=== PATIENT | male | born 1930 | race Caucasian/White ===

== ENCOUNTER 2017-02-19 10:01 | Inpatient (IN) | payer MEDICARE ==
[~2017-02-19] VITALS: Ht 167.6 cm; Wt 81.6 kg
[2017-02-19] VITALS (22 sets, daily range): BP systolic 132–163; BP diastolic 73–119; BMI 30.5
[~2017-02-19 10:01] MED LIST: ASPIRIN325 MG PO; BETAPACE AF80 MG PO; COUMADIN5 MG PO; HYDROCHLOROTH12.5 M1; NORCO 5/325 TAB1 TA1; PERI-COLACE TAB1 TAB; PRAVACHOL40 MG PO; ZESTORETIC 20/11 TAB PO
[2017-02-19 10:30] LABS: BASOPHILS 0.9 % (0-2); EOSINOPHILS 5.8 % (0-7); HEMATOCRIT 43.6 % (42.0-54.0); HEMOGLOBIN 14.2 g/dL (13.5-17.5); IMMATURE GRANULOCYTES 0.7 % (0-5); LYMPHOCYTES 12.9 % (15-50); MCHC 32.6 g/dL (31.0-37.0); MCV 95.2 fL (80.0-100.0); MEAN PLATELET VOLUME 10.9 fL (7.4-10.4); MONOCYTES 9.8 % (2-11); NEUTROPHILS 69.9 % (40-80); RBC 4.58 10x6/uL (4.20-6.10); RDW 14.1 % (11.5-14.5); WBC 7.5 10x3/uL (4.8-10.8)
[2017-02-19 10:32] LABS: PLATELET COUNT 214 10x3/uL (130-400)
[2017-02-19 11:19] LABS: ALBUMIN 3.9 g/dL (3.4-5.0); ANION GAP 16.6 mmol/L (8-16); BILIRUBIN - TOTAL 0.49 mg/dL (0.2-1.3); CALCIUM 8.8 mg/dL (8.5-10.1); CARBON DIOXIDE 21.9 mmol/L (21.0-32.0); CREATININE - SERUM 1.3 mg/dL (0.6-1.3); POTASSIUM - SERUM 3.5 mmol/L (3.5-5.1); PROTEIN - SERUM 7.2 g/dL (6.4-8.2); THYROID STIMULATING HORMONE 0.79 uIU/mL (0.36-3.74); TROPONIN-I 0.026 ng/mL (0.000-0.060)
[2017-02-20] VITALS (24 sets, daily range): BP systolic 118–157; BP diastolic 45–97; Ht 167.6 cm; Wt 81.6 kg
[2017-02-20 03:52] LABS: BASOPHILS 0 % (0-2); EOSINOPHILS 0 % (0-7); HEMATOCRIT 40.3 % (42.0-54.0); HEMOGLOBIN 13.4 g/dL (13.5-17.5); IMMATURE GRANULOCYTES 0.2 % (0-5); LYMPHOCYTES 2.4 % (15-50); MCH 31.3 pg (26.0-34.0); MCHC 33.3 g/dL (31.0-37.0); MCV 94.2 fL (80.0-100.0); MEAN PLATELET VOLUME 10.2 fL (7.4-10.4); MONOCYTES 1.9 % (2-11); NEUTROPHILS 95.5 % (40-80); PLATELET COUNT 207 10x3/uL (130-400); RBC 4.28 10x6/uL (4.20-6.10); RDW 14.2 % (11.5-14.5)
[2017-02-20 04:11] LABS: ANION GAP 18.5 mmol/L (8-16); CALCIUM 8.7 mg/dL (8.5-10.1); CARBON DIOXIDE 21.7 mmol/L (21.0-32.0); CREATININE - SERUM 1.5 mg/dL (0.6-1.3); POTASSIUM - SERUM 3.2 mmol/L (3.5-5.1); WBC 13.3 10x3/uL (4.8-10.8)
[2017-02-21] VITALS (24 sets, daily range): BP systolic 123–163; BP diastolic 62–97
[2017-02-21 04:10] LABS: WBC 21.1 10x3/uL (4.8-10.8)
[2017-02-21 04:11] LABS: HEMATOCRIT 40.1 % (42.0-54.0); HEMOGLOBIN 13.3 g/dL (13.5-17.5); MCH 31.1 pg (26.0-34.0); MCHC 33.2 g/dL (31.0-37.0); MCV 93.7 fL (80.0-100.0); MEAN PLATELET VOLUME 10.3 fL (7.4-10.4); PLATELET COUNT 242 10x3/uL (130-400); RBC 4.28 10x6/uL (4.20-6.10); RDW 14.6 % (11.5-14.5)
[2017-02-21 04:15] LABS: ANION GAP 18.5 mmol/L (8-16); CALCIUM 8.6 mg/dL (8.5-10.1); CARBON DIOXIDE 21.9 mmol/L (21.0-32.0); PHOSPHOROUS 4.1 mg/dL (2.5-4.9); POTASSIUM - SERUM 3.4 mmol/L (3.5-5.1)
[2017-02-21 04:28] LABS: CREATININE - SERUM 2.2 mg/dL (0.6-1.3)
[2017-02-21 05:17] LABS: LYMPHOCYTES 3 % (15-50); MONOCYTES 1 % (2-11); NEUTROPHILS 94 % (40-80); PLATELET ESTIMATE NORMAL
[2017-02-22] VITALS (24 sets, daily range): BP systolic 127–163; BP diastolic 62–97
[2017-02-22 04:49] LABS: BASOPHILS 0 % (0-2); EOSINOPHILS 0.2 % (0-7); HEMATOCRIT 40.3 % (42.0-54.0); HEMOGLOBIN 13.3 g/dL (13.5-17.5); IMMATURE GRANULOCYTES 0.6 % (0-5); LYMPHOCYTES 7.2 % (15-50); MCH 30.8 pg (26.0-34.0); MCV 93.3 fL (80.0-100.0); MEAN PLATELET VOLUME 10.3 fL (7.4-10.4); MONOCYTES 7.7 % (2-11); NEUTROPHILS 84.3 % (40-80); PLATELET COUNT 241 10x3/uL (130-400); RBC 4.32 10x6/uL (4.20-6.10); RDW 14.5 % (11.5-14.5)
[2017-02-22 05:15] LABS: ALBUMIN 3.3 g/dL (3.4-5.0); ANION GAP 14.3 mmol/L (8-16); BILIRUBIN - DIRECT 0.26 mg/dL (0.00-0.30); BILIRUBIN - INDIRECT 0.54 mg/dL (0.00-1.00); BILIRUBIN - TOTAL 0.8 mg/dL (0.2-1.3); CALCIUM 8.2 mg/dL (8.5-10.1); CARBON DIOXIDE 24.1 mmol/L (21.0-32.0); CREATININE - SERUM 1.7 mg/dL (0.6-1.3); PHOSPHOROUS 4.1 mg/dL (2.5-4.9); POTASSIUM - SERUM 3.4 mmol/L (3.5-5.1)
[2017-02-23] VITALS (18 sets, daily range): BP systolic 138–170; BP diastolic 68–103
[2017-02-23 04:20] LABS: BASOPHILS 0.1 % (0-2); EOSINOPHILS 1.4 % (0-7); HEMATOCRIT 40.5 % (42.0-54.0); IMMATURE GRANULOCYTES 0.9 % (0-5); LYMPHOCYTES 9.3 % (15-50); MCH 32.3 pg (26.0-34.0); MCHC 34.6 g/dL (31.0-37.0); MCV 93.3 fL (80.0-100.0); MEAN PLATELET VOLUME 10.5 fL (7.4-10.4); MONOCYTES 9.5 % (2-11); NEUTROPHILS 78.8 % (40-80); PLATELET COUNT 223 10x3/uL (130-400); RBC 4.34 10x6/uL (4.20-6.10); RDW 14.2 % (11.5-14.5); WBC 14.8 10x3/uL (4.8-10.8)
[2017-02-23 04:29] LABS: ANION GAP 12.6 mmol/L (8-16); CARBON DIOXIDE 28.3 mmol/L (21.0-32.0); CREATININE - SERUM 1.6 mg/dL (0.6-1.3)
[2017-02-23 04:47] LABS: POTASSIUM - SERUM 2.9 mmol/L (3.5-5.1)
[2017-02-24 03:00] VITALS: BP 142/84
[2017-02-24 03:54] LABS: BASOPHILS 0.2 % (0-2); EOSINOPHILS 3.6 % (0-7); HEMATOCRIT 42.5 % (42.0-54.0); HEMOGLOBIN 14.1 g/dL (13.5-17.5); IMMATURE GRANULOCYTES 2.1 % (0-5); LYMPHOCYTES 12.6 % (15-50); MCH 30.5 pg (26.0-34.0); MCHC 33.2 g/dL (31.0-37.0); MEAN PLATELET VOLUME 10.3 fL (7.4-10.4); MONOCYTES 8.3 % (2-11); NEUTROPHILS 73.2 % (40-80); PLATELET COUNT 227 10x3/uL (130-400); RBC 4.62 10x6/uL (4.20-6.10); WBC 12.1 10x3/uL (4.8-10.8)
[2017-02-24 04:21] LABS: ANION GAP 14.6 mmol/L (8-16); CALCIUM 7.6 mg/dL (8.5-10.1); CARBON DIOXIDE 25.8 mmol/L (21.0-32.0); CREATININE - SERUM 1.2 mg/dL (0.6-1.3); MAGNESIUM - SERUM 2.2 mg/dL (1.8-2.4); POTASSIUM - SERUM 3.4 mmol/L (3.5-5.1)
[2017-02-24 04:24] LABS: PHOSPHOROUS 2.5 mg/dL (2.5-4.9)
[2017-02-24 07:00] VITALS: BP 151/79
[2017-02-24 11:00] VITALS: BP 132/69
[2017-02-24 15:00] VITALS: BP 136/75
[2017-02-24 17:09] VITALS: BP 133/76
[2017-02-24 19:00] VITALS: BP 157/74
[2017-02-25 04:00] VITALS: BP 163/72
[2017-02-25 06:27] LABS: BASOPHILS 0.2 % (0-2); EOSINOPHILS 8.3 % (0-7); HEMATOCRIT 44.7 % (42.0-54.0); HEMOGLOBIN 15.1 g/dL (13.5-17.5); IMMATURE GRANULOCYTES 3.6 % (0-5); LYMPHOCYTES 8.5 % (15-50); MCH 31.1 pg (26.0-34.0); MCHC 33.8 g/dL (31.0-37.0); MCV 92.2 fL (80.0-100.0); MEAN PLATELET VOLUME 10.4 fL (7.4-10.4); MONOCYTES 15.4 % (2-11); PLATELET COUNT 247 10x3/uL (130-400); RBC 4.85 10x6/uL (4.20-6.10); RDW 13.9 % (11.5-14.5); WBC 13.1 10x3/uL (4.8-10.8)
[2017-02-25 06:33] LABS: ANION GAP 12.9 mmol/L (8-16); CALCIUM 8.2 mg/dL (8.5-10.1); CARBON DIOXIDE 26.3 mmol/L (21.0-32.0); CREATININE - SERUM 1.4 mg/dL (0.6-1.3); POTASSIUM - SERUM 3.2 mmol/L (3.5-5.1)
[2017-02-25 08:26] VITALS: BP 143/71
[2017-02-25 11:40] VITALS: BP 151/73
[2017-02-25 16:11] VITALS: BP 136/69
[2017-02-25 20:25] VITALS: BP 145/56
[2017-02-26 01:13] VITALS: BP 130/53
[2017-02-26 04:32] VITALS: BP 117/66
[2017-02-26 05:21] LABS: BASOPHILS 0.3 % (0-2); EOSINOPHILS 8.4 % (0-7); HEMOGLOBIN 15.2 g/dL (13.5-17.5); IMMATURE GRANULOCYTES 4.1 % (0-5); LYMPHOCYTES 10.1 % (15-50); MCH 30.8 pg (26.0-34.0); MCHC 33.8 g/dL (31.0-37.0); MCV 91.3 fL (80.0-100.0); MEAN PLATELET VOLUME 10.5 fL (7.4-10.4); MONOCYTES 14.6 % (2-11); NEUTROPHILS 62.5 % (40-80); PLATELET COUNT 229 10x3/uL (130-400); RBC 4.93 10x6/uL (4.20-6.10); WBC 13.5 10x3/uL (4.8-10.8)
[2017-02-26 05:49] LABS: ANION GAP 11.5 mmol/L (8-16); CARBON DIOXIDE 25.7 mmol/L (21.0-32.0); CREATININE - SERUM 1.4 mg/dL (0.6-1.3); POTASSIUM - SERUM 3.2 mmol/L (3.5-5.1)
[2017-02-26 08:32] VITALS: BP 132/73
[2017-02-26 11:24] VITALS: BP 158/63
[2017-02-26 15:46] VITALS: BP 135/58
[2017-02-26 20:00] VITALS: BP 147/53
[2017-02-27] VITALS: BP 138/71
[2017-02-27 04:00] VITALS: BP 137/65
[2017-02-27 06:48] LABS: BASOPHILS 0.4 % (0-2); EOSINOPHILS 8.1 % (0-7); HEMATOCRIT 45.2 % (42.0-54.0); HEMOGLOBIN 15.2 g/dL (13.5-17.5); IMMATURE GRANULOCYTES 3.8 % (0-5); LYMPHOCYTES 9.7 % (15-50); MCHC 33.6 g/dL (31.0-37.0); MCV 92.2 fL (80.0-100.0); MEAN PLATELET VOLUME 10.5 fL (7.4-10.4); MONOCYTES 16.7 % (2-11); NEUTROPHILS 61.3 % (40-80); PLATELET COUNT 242 10x3/uL (130-400)
[2017-02-27 06:50] LABS: ANION GAP 14.6 mmol/L (8-16); CALCIUM 8.2 mg/dL (8.5-10.1); CARBON DIOXIDE 24.6 mmol/L (21.0-32.0); CREATININE - SERUM 1.5 mg/dL (0.6-1.3); POTASSIUM - SERUM 3.2 mmol/L (3.5-5.1)
[2017-02-27 07:45] VITALS: BP 155/67
[2017-02-27 11:37] VITALS: BP 148/72
[2017-02-27 16:17] VITALS: BP 136/70
[2017-02-27 19:00] VITALS: BP 131/68
[2017-02-28 04:00] VITALS: BP 102/68
[2017-02-28 05:57] LABS: BASOPHILS 0.2 % (0-2); EOSINOPHILS 7.4 % (0-7); HEMATOCRIT 46.7 % (42.0-54.0); HEMOGLOBIN 15.7 g/dL (13.5-17.5); LYMPHOCYTES 13.7 % (15-50); MCH 31.3 pg (26.0-34.0); MCHC 33.6 g/dL (31.0-37.0); MEAN PLATELET VOLUME 10.9 fL (7.4-10.4); MONOCYTES 15.8 % (2-11); NEUTROPHILS 59.9 % (40-80); PLATELET COUNT 231 10x3/uL (130-400); RBC 5.02 10x6/uL (4.20-6.10); RDW 13.9 % (11.5-14.5); WBC 12.9 10x3/uL (4.8-10.8)
[2017-02-28 06:19] LABS: ANION GAP 13.5 mmol/L (8-16); CALCIUM 8.4 mg/dL (8.5-10.1); CARBON DIOXIDE 25.4 mmol/L (21.0-32.0); CREATININE - SERUM 1.4 mg/dL (0.6-1.3)
[2017-02-28 06:34] LABS: POTASSIUM - SERUM 2.9 mmol/L (3.5-5.1)
[2017-02-28 08:46] VITALS: BP 161/78
[2017-02-28 11:23] VITALS: BP 152/72
[2017-02-28 15:39] VITALS: BP 148/70
[2017-02-28 20:00] VITALS: BP 130/72
[2017-03-01] VITALS: BP 129/77
[2017-03-01 04:00] VITALS: BP 137/75
[2017-03-01 05:23] LABS: BASOPHILS 0.4 % (0-2); EOSINOPHILS 7.5 % (0-7); HEMATOCRIT 44.8 % (42.0-54.0); IMMATURE GRANULOCYTES 2.3 % (0-5); LYMPHOCYTES 15.9 % (15-50); MCH 30.9 pg (26.0-34.0); MCHC 33.5 g/dL (31.0-37.0); MCV 92.2 fL (80.0-100.0); MONOCYTES 13.1 % (2-11); NEUTROPHILS 60.8 % (40-80); PLATELET COUNT 227 10x3/uL (130-400); RBC 4.86 10x6/uL (4.20-6.10); WBC 11.9 10x3/uL (4.8-10.8)
[2017-03-01 05:46] LABS: ANION GAP 17.5 mmol/L (8-16); CALCIUM 8.5 mg/dL (8.5-10.1); CARBON DIOXIDE 21.9 mmol/L (21.0-32.0); CREATININE - SERUM 1.7 mg/dL (0.6-1.3)
[2017-03-01 05:49] LABS: POTASSIUM - SERUM 3.4 mmol/L (3.5-5.1)
[2017-03-01 08:31] VITALS: BP 144/82
[2017-03-01 11:04] VITALS: BP 163/82
[2017-03-01] MEDS ORDERED: CORDARONE200 MG PO ×2 (12:30→13:54)
[2017-03-01] MEDS ORDERED: FLOMAX0.4 MG PO (12:30)
[2017-03-01] MEDS ORDERED: LOPRESSOR25 MG PO ×2 (12:30→13:54)
[2017-03-01] MEDS ORDERED: K-DUR20 MEQ PO ×2 (12:33→13:54)
[2017-03-01] MEDS ORDERED: LASIX40 MG PO ×2 (12:33→13:54)
== END 2017-03-01 16:06 | disposition home or self-care (01) | DRG 291 ==
LOC: D.ER 10:01 → D.ICU 12:30 → D.M2 12:30
PROVIDERS: Emergency Medicine; Internal Medicine Nephrology
PROC: 0T9B70Z Drainage of Bladder with Drainage Device, Via Natural or Artificial Opening (ICD-10-PCS; principal; 2017-02-19)
PROC: 5A09357 Assistance with Respiratory Ventilation, Less than 24 Consecutive Hours, Continuous Positive Airway Pressure (ICD-10-PCS; 2017-02-19)
DX: I11.0 Hypertensive heart disease with heart failure (principal); J96.01 Acute respiratory failure with hypoxia; J18.9 Pneumonia, unspecified organism; J44.1 Chronic obstructive pulmonary disease with (acute) exacerbation; N17.9 Acute kidney failure, unspecified; E87.2 Acidosis; J44.0 Chronic obstructive pulmonary disease with (acute) lower respiratory infection; K21.9 Gastro-esophageal reflux disease without esophagitis; I25.10 Atherosclerotic heart disease of native coronary artery without angina pectoris; E11.9 Type 2 diabetes mellitus without complications; I48.0 Paroxysmal atrial fibrillation; I44.7 Left bundle-branch block, unspecified; E78.5 Hyperlipidemia, unspecified; J30.9 Allergic rhinitis, unspecified; I08.3 Combined rheumatic disorders of mitral, aortic and tricuspid valves; E87.6 Hypokalemia; R00.0 Tachycardia, unspecified; I50.23 Acute on chronic systolic (congestive) heart failure; I27.20 Pulmonary hypertension, unspecified; Z95.1 Presence of aortocoronary bypass graft; Z87.891 Personal history of nicotine dependence

== ENCOUNTER 2017-04-04 11:11 | Outpatient (CLI) | payer MEDICARE ==
--- NOTE | ~2017-04-04 | HEMODYNAMI ---
PATIENT:NINOSKA CRUZ JR MEDICAL RECORD: [id number] : 30 LOCATION:D.CAT ADMISSION DATE: 04/04/17 Generatedon:04/04/201714:10 Patient name: NINOSKA CRUZ Patient #: [id number] SSN: : 1930 Date of study: 04/04/2017 Page: Of Hemodynamic Procedure Report Patient Data Patient Demographics Procedure consent was obtained First Name: NINOSKA Gender: Male Last Name: ANTHONY Suffix: Patient #: [id number] : 1930 Age: 86 year(s) Accession #: Race: Unknown [id number] Additional ID: [id number] Contact details Address: [address] [place] [address] State: [place] City: [place] Zip code: [address] Admission Admission Data Admission Date: 04/04/2017 Admission Time: 11:11 Procedure Procedure Types Cath Procedure Diagnostic Procedure Cardioversion Procedure Description Procedure Date Procedure Date: 04/04/2017 Procedure Start Time: 13:59 Procedure End Time: 14:04 Procedure Staff Name Function Ward Sunshine MD Performing Physician Alley Lacy RT Monitor Aleshia Watts RN Nurse Procedure Data Procedure Complications No complications Procedure Medications Medication Administration Route Dosage Oxygen NC 4 l/min Refer to Anesthesia Notes for Sedation Medications Hemodynamics Rest Heart Rate: 88 (bpm) Snapshots Pre Cath Intra NCS Post Cath Vital Signs Time Heart Resp SPO2 etCO2 NIBP (mmHg) Rhythm Pain Sedation Rate (ipm) (%) (mmHg) Status Level (bpm) 13:58:55 115 34 96 0.7 168/126(138) A-Fib 0 (11) 10(A) , No pain 14:03:13 117 38 98 0 153/77(115) NSR 0 (11) 9(A) , No pain 14:09:50 79 35 98 171/80(148) NSR 0 (11) 10(A) , No pain Medications Time Medication Route Dose Verified Delivered Reason Notes Effective ness by by 13:58:00 Oxygen NC 4 Aleshia Monk used for l/min Mac Watts combination welder RN 13:58:07 Refer to Aleshia Monk for Anesthesia Mac Watts sedation Notes for RN RN Sedation Medications Procedure Log Time Note 13:43:27 Time tracking: Regular hours 13:43:30 Plan of Care:Hemodynamics will remain stable., Cardiac rhythm will remain stable., Comfort level will be maintained., Respiratory function will remain adequate., Patient/ family verbilizes understanding of procedure., Procedure tolerated without complication., Recovers from procedure without complications.. 13:46:41 Aleshia Watts RN sent for patient. Start room use. 13:52:31 Patient received from Pre/Post Procedure Room to CCL 3 Alert and oriented. Tansferred to table in Supine position. 13:52:32 Warm blankets applied, and ugo hugger turned on for patient comfort. 13:52:32 Correct patient and procedure confirmed by team. 13:52:34 Signed procedure consent form obtained from patient. 13:52:35 ECG and BP/O2 sat monitors applied to patient. 13:52:36 Full Disclosure recording started 13:57:30 Vital chart was started 13:58:00 Oxygen 4 l/min NC was administered by Aleshia Watts RN; used for procedure; 13:58:04 Final Timeout: patient, procedure, and site verified with staff and physician. All members of the team are in agreement. 13:58:04 Baseline sample Acquired. 13:58:07 Refer to Anesthesia Notes for Sedation Medications was administered by Aleshia Watts RN; for sedation; 13:58:09 Rhythm: atrial fibrillation 13:58:17 H&P Date Dictated: 04/03/2017 Within 30 days and on chart., H&P Addendum completed by physician on day of procedure. (MUST COMPLETE FOR ALL OUTPATIENTS). 13:58:19 Pre-op teaching completed and patient verbalized understanding. 13:58:20 Pre-procedure instructions explained to patient. 13:58:21 Family in waiting room. 13:58:22 Patient NPO since Midnight. 13:58:28 Is patient on blood thinner?Yes 13:58:31 ACC The patient was administered the following blood thiners within the last 24 hours: ACCPradaxa 13:58:44 See anesthesia note for assessment 13:58:51 Patient pain scale 0/10 ?. 13:58:56 IV patent on arrival in right forearm with 0.9% NaCl at O. 13:58:57 Lab results completed and on chart. 13:59:02 Alarms reviewed by Babatunde Epperson. 13:59:08 Physical assessment completed. ASA score P 2 - A patient with mild systemic disease as per Ward Sunshine MD. 13:59:13 Sedation plan: TIVA Medication:Propofol 13:59:17 Quick combo pads placed on patients chest and back. 13:59:45 Procedure started. 13:59:59 Defibrillator synced and charged to 200 Joules. 14:00:00 Shock delivered. 14:00:03 Patient cardioverted to sinus bradycardia. 14:01:22 Procedure ended.(Physican Out) 14:01:35 Insertion/operative site no bleeding no hematoma. 14:01:40 Post procedure rhythm: sinus bradycardia 14:01:43 Post procedure instruction explained to patient.Patient verbalizes understanding. 14:01:44 Patient needs reinforcement of post procedure teaching. 14:01:51 Procedure Complication : No complications 14:01:53 Vital chart was stopped 14:01:59 Vital chart was started 14:02:04 See physician's report for complete and final results. 14:02:15 Quick Combo opened to sterile field. 14:02:36 Procedure and supply charges have been captured, reviewed, submitted and are correct. 14:04:29 Vital chart was stopped 14:04:31 Report given to Pre/Post Procedure Room. 14:04:36 Procedure ended. 14:04:36 Full Disclosure recording stopped 14:04:44 End room use (Document Last) 14:09:07 Patient transfered to Pre/Post Procedure Room with Stretcher. Device Usage Item Manufacture Quantity Catalog Hospital Part Current Minimal Lot# / Name Number Charge Number Stock Stock Severiano al# Code LyricFind 1 [id number] Combo Signature Audit [place] Stage Time Signature Unsigned Intra-Procedure 04/04/2017 Alley 2:10:29 PM Counts RT(R) Signatures Monitor : Alley Signature : Counts RT Date : Time : [facility] [address] [place] [address]
[~2017-04-04 11:11] MED LIST changes: +CORDARONE200 MG PO; +FLOMAX0.4 MG PO; +K-DUR20 MEQ PO; +LASIX40 MG PO; +LOPRESSOR25 MG PO
[2017-04-04] MEDS ORDERED: LEVOTHYROXINE100 MCG PO (11:52)
[2017-04-04] MEDS ORDERED: AMBIEN10 MG PO (11:53)
[2017-04-04 12:05] VITALS: BP 192/78; BMI 29.2
[2017-04-04 12:12] LABS: BASOPHILS 0.4 % (0-2); EOSINOPHILS 3.3 % (0-7); HEMATOCRIT 45.5 % (42.0-54.0); HEMOGLOBIN 14.8 g/dL (13.5-17.5); IMMATURE GRANULOCYTES 0.5 % (0-5); LYMPHOCYTES 10.5 % (15-50); MCHC 32.5 g/dL (31.0-37.0); MCV 95.4 fL (80.0-100.0); MEAN PLATELET VOLUME 10.6 fL (7.4-10.4); NEUTROPHILS 75.3 % (40-80); PLATELET COUNT 211 10x3/uL (130-400); RBC 4.77 10x6/uL (4.20-6.10); RDW 15.9 % (11.5-14.5); WBC 9.4 10x3/uL (4.8-10.8)
[2017-04-04 12:27] LABS: ANION GAP 13.8 mmol/L (8-16); CALCIUM 8.9 mg/dL (8.5-10.1); CARBON DIOXIDE 27.5 mmol/L (21.0-32.0); CREATININE - SERUM 1.9 mg/dL (0.6-1.3); INR 1.46 (0.85-1.17); POTASSIUM - SERUM 3.3 mmol/L (3.5-5.1); PROTIME 17.2 SECONDS (11.6-15.0)
[2017-05-08] MEDS ORDERED: PRADAXA75 MG PO (12:32)
[2017-05-08] MEDS ORDERED: FLUTICASONE PRO16 GM NASAL (12:32)
[2017-05-08] MEDS ORDERED: MUCINEX600 MG (12:32)
== END 2017-04-04 15:30 | disposition home or self-care (01) ==
LOC: D.CATH 11:11
PROVIDERS: Internal Medicine Cardiovascular Disease
DX: I48.91 Unspecified atrial fibrillation (principal); I25.10 Atherosclerotic heart disease of native coronary artery without angina pectoris; I10 Essential (primary) hypertension; J44.9 Chronic obstructive pulmonary disease, unspecified; Z95.1 Presence of aortocoronary bypass graft; I50.9 Heart failure, unspecified; Z01.812 Encounter for preprocedural laboratory examination

== ENCOUNTER 2017-04-20 13:56 | Inpatient (IN) | payer MEDICARE ==
[~2017-04-20] VITALS: Ht 167.6 cm; Wt 81.9 kg
[~2017-04-20 13:56] MED LIST changes: +AMBIEN10 MG PO; +LEVOTHYROXINE100 MCG PO
[2017-04-20 14:49] LABS: EOSINOPHILS 3.8 % (0-7); HEMATOCRIT 46.4 % (42.0-54.0); IMMATURE GRANULOCYTES 0.8 % (0-5); LYMPHOCYTES 13.4 % (15-50); MCH 31.2 pg (26.0-34.0); MCHC 32.3 g/dL (31.0-37.0); MCV 96.5 fL (80.0-100.0); MEAN PLATELET VOLUME 11.1 fL (7.4-10.4); MONOCYTES 6.8 % (2-11); NEUTROPHILS 74.2 % (40-80); PLATELET COUNT 240 10x3/uL (130-400); RBC 4.81 10x6/uL (4.20-6.10); RDW 15.9 % (11.5-14.5); WBC 12.3 10x3/uL (4.8-10.8)
[2017-04-20 14:50] LABS: APPEARANCE HAZY (CLEAR); BILIRUBIN NEGATIVE (NEGATIVE); COLOR RED (YELLOW); GLUCOSE NEGATIVE (NEGATIVE); KETONE NEGATIVE (NEGATIVE); NITRITE NEGATIVE (NEGATIVE); PROTEIN 1+ mg/dL (NEGATIVE); SPECIFIC GRAVITY 1.015 (1.005-1.020); UROBILINOGEN NORMAL (NORMAL)
[2017-04-20 14:52] LABS: BACTERIA FEW /hpf (NONE SEEN); RED CELLS - URINE >50 /hpf (0-5); WHITE CELLS - URINE OCC /hpf (0-5)
[2017-04-20 15:02] LABS: ALBUMIN 3.6 g/dL (3.4-5.0); ANION GAP 14.9 mmol/L (8-16); CALCIUM 8.7 mg/dL (8.5-10.1); CARBON DIOXIDE 29.2 mmol/L (21.0-32.0); CREATININE - SERUM 1.8 mg/dL (0.6-1.3); POTASSIUM - SERUM 4.1 mmol/L (3.5-5.1); PROTEIN - SERUM 6.7 g/dL (6.4-8.2)
[2017-04-20 15:10] LABS: TROPONIN-I 0.06 ng/mL (0.000-0.060)
[2017-04-20 21:05] LABS: INR 1.35 (0.85-1.17); PROTIME 16.2 SECONDS (11.6-15.0)
[2017-04-20] MEDS ORDERED: MIRAPEX0.125 MG PO (23:24)
[2017-04-20] MEDS ORDERED: PROSCAR5 MG PO (23:25)
[2017-04-21] MEDS ORDERED: NEXIUM40 MG PO (03:45)
[2017-04-21 03:46] VITALS: BP 152/72; BMI 29.0
[2017-04-21 04:00] VITALS: BP 145/71
[2017-04-21 08:08] VITALS: BP 114/78
[2017-04-21 11:02] VITALS: BP 158/76
[2017-04-21 14:20] VITALS: Ht 167.6 cm; Wt 81.9 kg
[2017-04-21 15:16] VITALS: BP 170/88
[2017-04-21 20:00] VITALS: BP 132/74
[2017-04-22] VITALS: BP 145/66
[2017-04-22 04:00] VITALS: BP 150/76
[2017-04-22 04:40] LABS: BASOPHILS 0.5 % (0-2); EOSINOPHILS 6.2 % (0-7); HEMATOCRIT 41.1 % (42.0-54.0); HEMOGLOBIN 13.2 g/dL (13.5-17.5); IMMATURE GRANULOCYTES 0.5 % (0-5); LYMPHOCYTES 8.7 % (15-50); MCH 30.3 pg (26.0-34.0); MCHC 32.1 g/dL (31.0-37.0); MEAN PLATELET VOLUME 11.2 fL (7.4-10.4); MONOCYTES 12.5 % (2-11); NEUTROPHILS 71.6 % (40-80); RBC 4.36 10x6/uL (4.20-6.10); RDW 15.4 % (11.5-14.5); WBC 11.1 10x3/uL (4.8-10.8)
[2017-04-22 04:48] LABS: MCV 94.3 fL (80.0-100.0); PLATELET COUNT 189 10x3/uL (130-400)
[2017-04-22 05:18] LABS: ANION GAP 10.5 mmol/L (8-16); CARBON DIOXIDE 29.5 mmol/L (21.0-32.0); CREATININE - SERUM 1.7 mg/dL (0.6-1.3)
[2017-04-22 09:47] VITALS: BP 152/88
[2017-04-22] MEDS ORDERED: LASIX40 MG PO (10:41)
[2017-04-22] MEDS ORDERED: ALDACTONE25 MG PO (10:42)
[2017-04-22 12:42] VITALS: BP 167/66
[2017-05-08] MEDS ORDERED: MUCINEX600 MG (12:32)
[2017-05-08] MEDS ORDERED: FLUTICASONE PRO16 GM NASAL (12:32)
[2017-05-08] MEDS ORDERED: PRADAXA75 MG PO (12:32)
== END 2017-04-22 17:52 | disposition home health service (06) | DRG 291 ==
LOC: D.ER 13:56 → D.M2 16:19 → D.EDHOLD 16:19 → D.M2 21:23
PROVIDERS: Emergency Medicine; Internal Medicine Nephrology; Nurse Practitioner Family
DX: I11.0 Hypertensive heart disease with heart failure (principal); J96.21 Acute and chronic respiratory failure with hypoxia; N17.9 Acute kidney failure, unspecified; I50.23 Acute on chronic systolic (congestive) heart failure; J44.9 Chronic obstructive pulmonary disease, unspecified; I25.10 Atherosclerotic heart disease of native coronary artery without angina pectoris; Z95.1 Presence of aortocoronary bypass graft; I48.0 Paroxysmal atrial fibrillation; I08.0 Rheumatic disorders of both mitral and aortic valves; E78.5 Hyperlipidemia, unspecified; N40.0 Benign prostatic hyperplasia without lower urinary tract symptoms

== ENCOUNTER → 2017-05-08 12:00 | Outpatient (CLI) | payer MEDICARE ==
[~2017-05-08] VITALS: Ht 165.1 cm; Wt 63.6 kg
--- NOTE | ~2017-05-08 | HEMODYNAMI ---
PATIENT:NINOSKA CRUZ JR MEDICAL RECORD: [id number] : 30 LOCATION:DCurtCAT ADMISSION DATE: 05/08/17 Generatedon:05/08/201714:58 Patient name: NINOSKA CRUZ Patient #: [id number] SSN: : Date of study: 05/08/2017 Page: Of Hemodynamic Procedure Report Patient Data Patient Demographics Procedure consent was obtained First Name: NINOSKA Gender: Male Last Name: ANTHONY Suffix: Patient #: [id number] : 1930 Age: 86 year(s) Accession #: Race: Unknown [id number] Additional ID: [id number] Contact details Address: [address] [place] [address] State: [place] City: [place] Zip code: [address] Past Medical History Allergies: No known allergies Admission Admission Data Admission Date: 05/08/2017 Admission Time: 12:00 Procedure Procedure Types Cath Procedure Diagnostic Procedure LHC LHC w/Coronaries w/Grafts Sedation Charges Moderate Sedation up to 15 minutes Procedure Description Procedure Date Procedure Date: 05/08/2017 Procedure Start Time: 14:41 Procedure End Time: 14:56 Procedure Staff Name Function Ward Sunshine MD Performing Physician Alley Lacy RT Monitor Tho Melton RN Nurse Orlando Lee RT Scrub Procedure Data Cath Procedure Fluoroscopy Diagnostic fluoroscopy Total fluoroscopy Time: 3.5 time: 3.5 min min Diagnostic fluoroscopy Total fluoroscopy dose: 539 dose: 539 mGy mGy Contrast Material Contrast Material Type Amount (ml) Isovue 300 60 Entry Location Entry Primary Successful Side Size Upsize Upsize Entry Closure Succes sful Closure Location (Fr) 1 (Fr) 2 (Fr) Remarks Device Remarks Femoral Right 5 Fr Exoseal artery Estimated blood loss: 5 ml Diagnostic catheters Device Type Used For End Catheter Placement MULTIPACK JL 4.0 5Fr Left Coronary catheter Angiography DIAGNOSTIC IMT 5Fr Internal mammary Catheter ([id number]) arteriography DIAGNOSTIC AR MOD 5Fr Right Coronary Catheter ([id number]) Angiography DIAGNOSTIC AR MOD 5Fr SVG Angiography Catheter ([id number]) MULTIPACK Pigtail 5 Fr LV Angiography catheter Procedure Complications No complications Procedure Medications Medication Administration Route Dosage Oxygen NC 2 l/min Lidocaine 2% added to field 20 Heparin Flush Bag added to field 2 bags (1000units/500ml NS) 0.9% NaCl I.V. 100 ml/hr Versed I.V. 1 mg Fentanyl I.V. 50 mcg Versed I.V. 1 mg Fentanyl I.V. 50 mcg Hemodynamics Rest Heart Rate: 60 (bpm) Pressure Samples Time Site Value (mmHg) Purpose Heart Use Rate(bpm) 14:51 LV 106/-1,15 EDP 56 14:52 AO 129/61(87) Pullback 65 14:52 LV 133/9,44 Pullback 65 Gradients Valve Time Site 1 Site 2 Mean SEP/DFP Peak To Heart Use (mmHg) (sec/min) Peak Rate (mmHg) (bpm) Aortic 14:52 LV AO 12 9 4 65 133/9,44 129/61(87) Calculations Valve P-P Mean Valve Index Valve Source Name Gradient Area Flow (cm2) Aortic 4 12 4 12 Snapshots Pre Cath Intra NCS Post Cath Vital Signs Time Heart Resp SPO2 etCO2 NIBP (mmHg) Rhythm Pain Sedation Rate (ipm) (%) (mmHg) Status Level (bpm) 14:25:51 76 22 98 14.1 148/66(101) A-Fib 0 (11) 10(A) , No pain 14:30:09 65 29 100 21.5 148/82(126) A-Fib 0 (11) 10(A) , No pain 14:34:29 67 24 96 26.8 139/77(127) A-Fib 0 (11) 10(A) , No pain 14:38:51 66 23 97 0 132/69(110) A-Fib 0 (11) 10(A) , No pain 14:43:09 65 21 97 30.7 135/71(118) A-Fib 0 (11) 9(A) , No pain 14:47:27 69 19 94 33.5 118/73(105) A-Fib 0 (11) 9(A) , No pain 14:51:41 64 19 95 32.7 122/65(91) A-Fib 0 (11) 9(A) , No pain 14:55:55 64 19 94 31.2 120/72(109) A-Fib 0 (11) 10(A) , No pain Medications Time Medication Route Dose Verified Delivered Reason Notes Effe ctiveness by by 14:29:25 Oxygen NC 2 Ward Buffie used for l/min Jong Melton RN procedure 14:29:32 Lidocaine 2% added 20ml Ward Ward for local to vial Jong Sunshine MD anesthetic field 14:29:39 Heparin Flush added 2 Ward Ward used for Bag to bags Jong Sunshine MD procedure (1000units/500ml field NS) 14:29:47 0.9% NaCl I.V. 100 Ward Buffie Per ml/hr Jong Melton RN physician 14:37:16 Versed I.V. 1 mg Ward Buffie for oJng Melton RN sedation 14:37:23 Fentanyl I.V. 50 Ward Buffie for mcg Jong Melton RN sedation 14:45:44 Versed I.V. 1 mg Ward Buffie for Jong Melton RN sedation 14:45:48 Fentanyl I.V. 50 Ward Buffie for mcg Jong Melton RN sedation Procedure Log Time Note 14:00:46 Tho Melton RN sent for patient. Start room use. 14:01:29 Time tracking: Regular hours 14:01:33 Plan of Care:Hemodynamics will remain stable., Cardiac rhythm will remain stable., Comfort level will be maintained., Respiratory function will remain adequate., Patient/ family verbilizes understanding of procedure., Procedure tolerated without complication., Recovers from procedure without complications.. 14:16:54 Patient received from Pre/Post Procedure Room to CCL 2 Alert and oriented. Tansferred to table in Supine position. 14:16:55 Warm blankets applied, and ugo hugger turned on for patient comfort. 14:16:55 Correct patient and procedure confirmed by team. 14:16:57 Signed procedure consent form obtained from patient. 14:16:57 ECG and BP/O2 sat monitors applied to patient. 14:16:58 Full Disclosure recording started 14:24:37 Vital chart was started 14:24:52 Rhythm: sinus rhythm 14:25:10 H&P Date Dictated: 05/02/2017 Within 30 days and on chart., H&P Addendum completed by physician on day of procedure. (MUST COMPLETE FOR ALL OUTPATIENTS). 14:25:11 Pre-procedure instructions explained to patient. 14:25:11 Pre-op teaching completed and patient verbalized understanding. 14:25:14 Family in waiting room. 14:25:15 Patient NPO since Midnight. 14:25:30 Patient allergic to No known allergies 14:25:35 Is patient on blood thinner?No 14:25:44 Patient diabetic? No. 14:25:47 Previous problem with sedation/anesthesia? No ? 14:25:47 Snore? Yes 14:25:49 Sleep apnea? No 14:25:52 Deviated septum? No 14:25:52 Opens mouth fully? Yes 14:25:53 Sticks out tongue? Yes 14:25:57 Airway obstruction? Yes COPD 14:26:00 Dentures? No ? 14:26:03 Pre procedure: right dorsailis pedis pulse 2+ Normal; easily identifiable; not easily obliterated 14:26:04 Patient pain scale 0/10 ?. 14:26:11 IV patent on arrival in left hand with 0.9% NaCl at [facility]. 14:26:13 Lab results completed and on chart. 14:26:17 Right groin area was prepped with chlora-prep and draped in sterile fashion 14:26:18 Alarms reviewed by R. N. 14:26:18 Sharps counted by scrub and verified by R.N. 14:26:21 Use device set Femoral Dx 14:26:22 ACIST Syringe (73539) opened to sterile field. 14:26:22 Bag Decanter (2002) opened to sterile field. 14:26:23 Medline Cath Pack ([id number]) opened to sterile field. 14:26:24 SHEATH 5FR [place] ([id number]) opened to sterile field. 14:26:49 ACIST Hand Control (01992) opened to sterile field. 14:26:50 DIAGNOSTIC WIRE .035 260cm J wire (172633) opened to sterile field. 14:26:52 ACIST Manifold (69325) opened to sterile field. 14:26:53 DIAGNOSTIC Multipack 5Fr catheter set ([id number]) opened to sterile field. 14:26:53 Tegaderm 4 x 4 (1626W) opened to sterile field. 14:26:55 PERCUTANEOUS ENTRY 19GA needle opened to sterile field. 14:29:25 Oxygen 2 l/min NC was administered by Tho Melton RN; used for procedure; 14:29:32 Lidocaine 2% 20ml vial added to field was administered by Ward Sunshine MD; for local anesthetic; 14:29:39 Heparin Flush Bag (1000units/500ml NS) 2 bags added to field was administered by Ward Sunshine MD; used for procedure; 14:29:47 0.9% NaCl 100 ml/hr I.V. was administered by Tho Melton RN; Per physician; 14:30:55 Baseline sample Acquired. 14:31:06 Final Timeout: patient, procedure, and site verified with staff and physician. All members of the team are in agreement. 14:31:08 Right groin site verified by team. 14:31:12 Physical assessment completed. ASA score P 2 - A patient with mild systemic disease as per Ward Sunshine MD. 14:31:15 Sedation plan: IV Moderate Sedation Medication:Versed, Fentanyl 14:37:16 Versed 1 mg I.V. was administered by Tho Melton RN; for sedation; 14:37:23 Fentanyl 50 mcg I.V. was administered by Tho Melton RN; for sedation; 14:38:43 Zero performed for pressure channel P1 14:38:49 Zero performed for pressure channel P1 14:41:55 Procedure started. 14:41:57 Local anesthetic to right femoral artery with Lidocaine 2% by Ward Sunshine MD.INITIAL ACCESS ONLY 14:43:17 A 5 Fr sheath was inserted into the Right Femoral artery 14:43:42 A MULTIPACK JL 4.0 5Fr catheter was advanced over the wire and used for Left Coronary Angiography. 14:45:07 Catheter removed. 14:45:22 A DIAGNOSTIC IMT 5Fr Catheter ([id number]) was advanced over the wire and used for Internal mammary arteriography. 14:45:44 Versed 1 mg I.V. was administered by Tho Melton RN; for sedation; 14:45:48 Fentanyl 50 mcg I.V. was administered by Tho Melton RN; for sedation; 14:47:25 Catheter removed. 14:48:40 A DIAGNOSTIC AR MOD 5Fr Catheter ([id number]) was advanced over the wire and used for Right Coronary Angiography. 14:49:29 A DIAGNOSTIC AR MOD 5Fr Catheter ([id number]) was advanced over the wire and used for SVG Angiography.SKIP GRAFT TO OM1 AND OM2 14:49:49 Catheter removed. 14:50:32 A MULTIPACK Pigtail 5 Fr catheter was advanced over the wire and used for LV Angiography. 14:51:54 LV gram done using [place] 14:51:57 Injector settings: Ml/sec: 10, Volume: 20, 14:51:58 LV hemodynamics recorded. 14:52:10 EF : 50 % 14:52:24 Catheter removed. 14:52:27 EXOSEAL 5Fr (EX500) opened to sterile field. 14:52:45 Sheath removed intact; hemostasis achieved with Exoseal to the Right Femoral artery. 14:52:51 Procedure ended.(Physican Out) 14:53:21 Fluoroscopy time 03.50 minutes. 14:53:25 Fluoroscopy dose: 539 mGy 14:53:25 Flurop Dose total: 539 14:53:29 Contrast amount:Isovue 300 60ml. 14:53:30 Sharps counted by scrub and verified by R.N. 14:53:33 Insertion/operative site no bleeding no hematoma. 14:53:35 Post-op/insertion site Right Femoral artery dressed using a 4 x 4 and Tegaderm. 14:53:39 Post right femoral artery:stable, clean and dry 14:53:41 Post Procedure Pulses reassessed and unchanged 14:53:46 Post-procedure physical assessment completed. ASA score P 2 - A patient with mild systemic disease as per Ward Sunshine MD. 14:53:48 Post procedure rhythm: unchanged. 14:53:53 Estimated blood loss: 5 ml 14:53:54 Post procedure instruction explained to patient.Patient verbalizes understanding. 14:53:54 Patient needs reinforcement of post procedure teaching. 14:55:28 Procedure type changed to Cath procedure, Diagnostic procedure, LHC, LHC w/Coronaries w/Grafts, Sedation Charges, Moderate Sedation up to 15 minutes 14:55:33 Procedure Complication : No complications 14:55:36 See physician's report for complete and final results. 14:56:14 Procedure and supply charges have been captured, reviewed, submitted and are correct. 14:56:24 Vital chart was stopped 14:56:26 Report given to Pre/Post Procedure Room. 14:56:28 Patient transfered to Pre/Post Procedure Room with Stretcher. 14:56:30 Procedure ended. 14:56:30 Full Disclosure recording stopped 14:56:33 End room use (Document Last) Device Usage Item Name Manufacture Quantity Catalog Number Hospital Part Current Mini mal Lot# / Charge Number Stock Stock Serial# Code ACIST Acist 1 [id number] [id number] 847526 096385 20 Syringe Medical (93792) Systems Inc Bag Decanter Microtek 1 2001S 472353 76660 478749 5 (2001S) Medical Inc. Medline Cath Cardinal 1 [id number] 593805 47862 015928 5 Pack Health ([id number]) SHEATH 5FR Terumo 1 [id number] 433901 549312 586529 40 [place] (VPB498) ACIST Hand Acist 1 41545 789503 277412 850253 5 Control Medical (35589) Systems Inc DIAGNOSTIC [place] 1 402808 517373 919180 356336 30 WIRE .035 260cm J wire (326125) ACIST Acist 1 03581 971542 258415 045742 5 Manifold Medical (68655) Systems Inc DIAGNOSTIC Cardinal 1 BS8706 141032 66298 961053 30 Multipack Health 5Fr catheter set ([id number]) Tegaderm 4 x 3M 1 1626W 452766 732690 584120 5 4 (1626W) PERCUTANEOUS Cook Medical 1 X31399 937746 762792 5 ENTRY 19GA needle MULTIPACK JL Cardinal 1 304766 5 4.0 5Fr Health catheter DIAGNOSTIC [place] 1 [id number] 672733 467111 59510 5 IMT 5Fr Scientific Catheter ([id number]) DIAGNOSTIC Cardinal 1 [id number] 909731 553733 534817 15 [place] MOD 5Fr Health Catheter ([id number]) MULTIPACK Cardinal 1 146618 5 Pigtail 5 Fr Health catheter EXOSEAL 5Fr Cardinal 1 EX500 336658 608745 438532 10 (EX500) Health Signature Audit [place] Stage Time Signature Unsigned Intra-Procedure 05/08/2017 Alley 2:58:25 PM Counts RT(R) Signatures Monitor : Alley Signature : Counts RT Date : Time : [facility] [address] [place] [address]
[~2017-05-08 12:00] MED LIST changes: +ALDACTONE25 MG PO; +COZAAR50 MG PO; +FLUTICASONE PRO16 GM NASAL; +LASIX20 MG PO; +MIRAPEX0.125 MG PO; +MUCINEX600 MG; +NEXIUM40 MG PO; +PRADAXA75 MG PO; +PROSCAR5 MG PO
[2017-05-08 12:44] VITALS: BP 147/70; Ht 165.1 cm; Wt 63.6 kg
[2017-05-08 13:00] LABS: BASOPHILS 0.8 % (0-2); EOSINOPHILS 5.3 % (0-7); HEMATOCRIT 45.3 % (42.0-54.0); HEMOGLOBIN 14.9 g/dL (13.5-17.5); IMMATURE GRANULOCYTES 0.9 % (0-5); LYMPHOCYTES 10.4 % (15-50); MCH 30.9 pg (26.0-34.0); MCHC 32.9 g/dL (31.0-37.0); MEAN PLATELET VOLUME 10.8 fL (7.4-10.4); MONOCYTES 13.6 % (2-11); RBC 4.82 10x6/uL (4.20-6.10); RDW 15.2 % (11.5-14.5); WBC 10.7 10x3/uL (4.8-10.8)
[2017-05-08 13:03] LABS: PLATELET COUNT 235 10x3/uL (130-400)
[2017-05-08 13:09] LABS: ANION GAP 14.4 mmol/L (8-16); CALCIUM 8.4 mg/dL (8.5-10.1); CARBON DIOXIDE 27.9 mmol/L (21.0-32.0); CREATININE - SERUM 1.6 mg/dL (0.6-1.3); POTASSIUM - SERUM 3.3 mmol/L (3.5-5.1)
== END | disposition home or self-care (01) ==
LOC: D.CATH 12:00
PROVIDERS: Internal Medicine Cardiovascular Disease
DX: I25.10 Atherosclerotic heart disease of native coronary artery without angina pectoris (principal); I48.91 Unspecified atrial fibrillation; I10 Essential (primary) hypertension; Z01.812 Encounter for preprocedural laboratory examination

== ENCOUNTER 2017-05-23 14:45 | Inpatient (IN) | payer MEDICARE ==
[~2017-05-23] VITALS: Ht 165.1 cm; Wt 88.9 kg
--- NOTE | ~2017-05-23 | CN ---
PATIENT NAME:NINOSKA CRUZ JR MEDICAL RECORD: [id number] : 30 LOCATION:D. D.2114 ADMIT DATE: 05/23/17 ACCOUNT: [id number] CONSULTING PHYSICIAN: LEXI RAHMAN MD REFERRING PHYSICIAN: NIK CHAVARRIA MD DATE OF CONSULTATION: 05/24/2017 CARDIOLOGY CONSULTATION DIAGNOSES: 1. Congestive heart failure, chronic systolic dysfunction. 2. Coronary artery disease. 3. Ischemic cardiomyopathy. 4. Status post coronary bypass graft surgery. 5. Aortic stenosis. 6. Hypertension. 7. Atrial fibrillation. 8. Hyperlipidemia. HISTORY: This is a gentleman who presents with shortness of breath and dyspnea on exertion, found to be in congestive heart failure. This is his third admission for congestive heart failure in the past few months. He underwent cardiac catheterization, revealing no significant new coronary disease. Ejection fraction was in the 35% range. He does have aortic stenosis. Valve area calculates to 0.5 cm-squared. There is a gradient of 35 mm across the valve. His chest x-ray is compatible with pulmonary edema. PHYSICAL EXAMINATION: GENERAL APPEARANCE: Well-nourished, well-developed, appears stated age. Level of distress, comfortable. PSYCHIATRIC: Mental status, alert, normal affect. Orientation, oriented to time, place and person. EYES: Lids and conjunctiva, noninjected. No discharge, no pallor. ENT: Lips, teeth, gums, normal dentition. Oropharynx, no cyanosis, no pallor. NECK: Carotid arteries, bilateral normal upstroke, no bruits, no thrills. JUGULAR VEINS: No jugular venous pressure or distention. CERVICAL LYMPH NODES: Nontender, nonenlarged. THYROID: Not enlarged. Nontender. No nodules. LUNGS: Bibasilar crackles. CHEST: Normal curvature. No thoracic deformity. No chest wall tenderness. Percussion, resonant. Auscultation, clear. No wheezes, no rales, no rhonchi. CARDIOVASCULAR: Precordial exam, nondisplaced. No heaves or pericardial thrills. Rate and rhythm, regular. Heart sounds, normal S1, normal S2. No S3, no gallop, no rub. III/ systolic murmur compatible with aortic stenosis. Diastolic murmur, not heard. EXTREMITIES: No cyanosis, no edema. Peripheral pulses, full and equal in all extremities, except as noted. No bruits appreciated. ABDOMEN: Soft, nondistended. Normal aorta. No bruit. Nontender. No masses. Liver, nontender, no hepatomegaly. Spleen, nontender, no splenomegaly. MUSCULOSKELETAL: No joint tenderness. No joint swelling. No erythema. NEUROLOGICAL: Normal gait, normal strength, normal tone. SKIN: Warm and dry. OVERALL IMPRESSION: Congestive heart failure from chronic systolic dysfunction and combination of aortic stenosis. At this time, we will start him on CONSULT REPORT [id number] NINOSKA CRUZ JR dobutamine drip as well as Lasix drip. Hopefully diurese him. Further care depends upon results with the diuresis. TRANSINT:[id number] Voice Confirmation ID: [id number] DOCUMENT ID: [id number] LEXI RAHMAN MD at 0956 CC: [id number] DICTATION DATE: 05/24/17 1131 STOCK RECEIVER: 05/24/17 1358 DIS IN 05/27/17 [address] [place] [address]
[~2017-05-23 14:45] MED LIST changes: -COZAAR50 MG PO; -LASIX20 MG PO
[2017-05-23 16:00] LABS: BASOPHILS 0.6 % (0-2); EOSINOPHILS 5.8 % (0-7); HEMATOCRIT 37.7 % (42.0-54.0); HEMOGLOBIN 12.2 g/dL (13.5-17.5); IMMATURE GRANULOCYTES 0.4 % (0-5); LYMPHOCYTES 9.4 % (15-50); MCH 30.3 pg (26.0-34.0); MCHC 32.4 g/dL (31.0-37.0); MCV 93.5 fL (80.0-100.0); MONOCYTES 15.1 % (2-11); NEUTROPHILS 68.7 % (40-80); RBC 4.03 10x6/uL (4.20-6.10); RDW 16.4 % (11.5-14.5); WBC 6.9 10x3/uL (4.8-10.8)
[2017-05-23 16:03] LABS: PLATELET COUNT 144 10x3/uL (130-400)
[2017-05-23 16:13] LABS: ALBUMIN 3.1 g/dL (3.4-5.0); ALKALINE PHOSPHATASE 50 U/L (46-116); ALT (SGPT) 25 U/L (10-68); CALC OSMOLALITY 293 mosm/kg (275-300); CARBON DIOXIDE 21.8 mmol/L (21.0-32.0); CHLORIDE - SERUM 112 mmol/L (98-107); CREATININE - SERUM 1.9 mg/dL (0.6-1.3); GLUCOSE 101 mg/dL (74-106); POTASSIUM - SERUM 3.3 mmol/L (3.5-5.1); PROTEIN - SERUM 5.8 g/dL (6.4-8.2); SODIUM 143 mmol/L (136-145); UREA NITROGEN 37 mg/dL (7-18); eGFR NON AFRICAN AMERICAN 36 mL/min (90-120)
[2017-05-23 16:30] LABS: CKMB 2.6 U/L (0.0-3.6); PRO BNP 4227 pg/mL (0-450)
[2017-05-23 16:40] LABS: TROPONIN-I 0.061 ng/mL (0.000-0.060)
[2017-05-23 17:13] LABS: APPEARANCE CLEAR (CLEAR); BILIRUBIN NEGATIVE (NEGATIVE); COLOR YELLOW (YELLOW); GLUCOSE NEGATIVE (NEGATIVE); KETONE NEGATIVE (NEGATIVE); NITRITE NEGATIVE (NEGATIVE); PROTEIN NEGATIVE (NEGATIVE); SPECIFIC GRAVITY 1.015 (1.005-1.020); UROBILINOGEN NORMAL (NORMAL)
[2017-05-23 20:12] LABS: CKMB 2.1 U/L (0.0-3.6); CREATINE KINASE 212 UL (21-232); TROPONIN-I 0.055 ng/mL (0.000-0.060)
[2017-05-23] MEDS ORDERED: AMBIEN10 MG PO (21:01)
[2017-05-23] MEDS ORDERED: CORDARONE200 MG PO (21:05)
[2017-05-23] MEDS ORDERED: ALDACTONE25 MG PO (21:05)
[2017-05-23 21:50] VITALS: BP 153/69; BMI 33.5
[2017-05-24] VITALS: BP 158/73
[2017-05-24 02:15] LABS: CKMB 1.8 U/L (0.0-3.6); CREATINE KINASE 149 UL (21-232)
[2017-05-24 02:21] LABS: TROPONIN-I 0.063 ng/mL (0.000-0.060)
[2017-05-24 04:00] VITALS: BP 142/61
[2017-05-24 06:05] LABS: BASOPHILS 0.6 % (0-2); EOSINOPHILS 5.9 % (0-7); HEMOGLOBIN 12.1 g/dL (13.5-17.5); IMMATURE GRANULOCYTES 0.5 % (0-5); MCH 29.9 pg (26.0-34.0); MCHC 31.8 g/dL (31.0-37.0); MCV 93.8 fL (80.0-100.0); MEAN PLATELET VOLUME 10.4 fL (7.4-10.4); MONOCYTES 16.8 % (2-11); NEUTROPHILS 66.2 % (40-80); PLATELET COUNT 142 10x3/uL (130-400); RBC 4.05 10x6/uL (4.20-6.10); RDW 16.6 % (11.5-14.5); WBC 6.3 10x3/uL (4.8-10.8)
[2017-05-24 07:00] LABS: ALBUMIN 3.2 g/dL (3.4-5.0); ALKALINE PHOSPHATASE 48 U/L (46-116); ALT (SGPT) 23 U/L (10-68); BILIRUBIN - TOTAL 0.43 mg/dL (0.2-1.3); CALC OSMOLALITY 292 mosm/kg (275-300); CALCIUM 7.9 mg/dL (8.5-10.1); CARBON DIOXIDE 27.1 mmol/L (21.0-32.0); CHLORIDE - SERUM 107 mmol/L (98-107); CKMB 2.3 U/L (0.0-3.6); CREATINE KINASE 157 UL (21-232); CREATININE - SERUM 1.9 mg/dL (0.6-1.3); GLUCOSE 89 mg/dL (74-106); POTASSIUM - SERUM 3.5 mmol/L (3.5-5.1); PROTEIN - SERUM 6.1 g/dL (6.4-8.2); SODIUM 144 mmol/L (136-145); UREA NITROGEN 32 mg/dL (7-18); eGFR NON AFRICAN AMERICAN 36 mL/min (90-120)
[2017-05-24 07:16] LABS: TROPONIN-I 0.065 ng/mL (0.000-0.060)
[2017-05-24 10:15] VITALS: BP 154/66
[2017-05-24 12:31] VITALS: BP 149/68
[2017-05-24 14:36] VITALS: Ht 165.1 cm; Wt 88.9 kg
[2017-05-24 18:21] VITALS: BP 149/82
[2017-05-24 19:00] VITALS: BP 148/62
[2017-05-25 04:00] VITALS: BP 184/79
[2017-05-25 06:27] LABS: BASOPHILS 0.4 % (0-2); EOSINOPHILS 3.9 % (0-7); HEMATOCRIT 40.6 % (42.0-54.0); HEMOGLOBIN 12.7 g/dL (13.5-17.5); IMMATURE GRANULOCYTES 0.4 % (0-5); LYMPHOCYTES 9.4 % (15-50); MCH 29.8 pg (26.0-34.0); MCHC 31.3 g/dL (31.0-37.0); MCV 95.3 fL (80.0-100.0); MEAN PLATELET VOLUME 10.8 fL (7.4-10.4); MONOCYTES 11.3 % (2-11); NEUTROPHILS 74.6 % (40-80); PLATELET COUNT 153 10x3/uL (130-400); RBC 4.26 10x6/uL (4.20-6.10); RDW 16.6 % (11.5-14.5)
[2017-05-25 06:58] LABS: ALBUMIN 3.6 g/dL (3.4-5.0); ANION GAP 14.8 mmol/L (8-16); BILIRUBIN - TOTAL 0.5 mg/dL (0.2-1.3); CARBON DIOXIDE 27.2 mmol/L (21.0-32.0); CREATININE - SERUM 1.8 mg/dL (0.6-1.3); PROTEIN - SERUM 6.6 g/dL (6.4-8.2)
[2017-05-25 07:00] VITALS: BP 164/75
[2017-05-25 13:38] VITALS: BP 145/57
[2017-05-25 17:12] VITALS: BP 155/63
[2017-05-25 20:00] VITALS: BP 158/56
[2017-05-26] VITALS: BP 177/65
[2017-05-26 04:30] VITALS: BP 158/56
[2017-05-26 06:35] LABS: BASOPHILS 0.4 % (0-2); EOSINOPHILS 4.2 % (0-7); HEMATOCRIT 39.6 % (42.0-54.0); HEMOGLOBIN 12.3 g/dL (13.5-17.5); IMMATURE GRANULOCYTES 0.2 % (0-5); LYMPHOCYTES 6.4 % (15-50); MCH 29.9 pg (26.0-34.0); MCHC 31.1 g/dL (31.0-37.0); MCV 96.1 fL (80.0-100.0); MEAN PLATELET VOLUME 10.1 fL (7.4-10.4); MONOCYTES 13.9 % (2-11); NEUTROPHILS 74.9 % (40-80); PLATELET COUNT 168 10x3/uL (130-400); RBC 4.12 10x6/uL (4.20-6.10); RDW 16.5 % (11.5-14.5); WBC 8.4 10x3/uL (4.8-10.8)
[2017-05-26 07:06] LABS: ALBUMIN 3.2 g/dL (3.4-5.0); BILIRUBIN - TOTAL 0.7 mg/dL (0.2-1.3); CALCIUM 8.2 mg/dL (8.5-10.1); CARBON DIOXIDE 28.7 mmol/L (21.0-32.0); CREATININE - SERUM 1.8 mg/dL (0.6-1.3); PROTEIN - SERUM 6.1 g/dL (6.4-8.2)
[2017-05-26 07:08] LABS: POTASSIUM - SERUM 3.7 mmol/L (3.5-5.1)
[2017-05-26 08:16] VITALS: BP 163/86
[2017-05-26 11:23] VITALS: BP 176/86
[2017-05-26 15:20] VITALS: BP 136/68
[2017-05-26 19:00] VITALS: BP 141/54
[2017-05-27 04:00] VITALS: BP 144/90
[2017-05-27 05:33] LABS: BASOPHILS 0.6 % (0-2); EOSINOPHILS 5.3 % (0-7); HEMOGLOBIN 13.4 g/dL (13.5-17.5); IMMATURE GRANULOCYTES 0.5 % (0-5); LYMPHOCYTES 10.2 % (15-50); MCH 30.2 pg (26.0-34.0); MCHC 31.2 g/dL (31.0-37.0); MCV 96.8 fL (80.0-100.0); MONOCYTES 9.5 % (2-11); NEUTROPHILS 73.9 % (40-80); PLATELET COUNT 176 10x3/uL (130-400); RBC 4.44 10x6/uL (4.20-6.10); RDW 16.4 % (11.5-14.5); WBC 8.2 10x3/uL (4.8-10.8)
[2017-05-27 05:41] LABS: ALBUMIN 3.4 g/dL (3.4-5.0); ANION GAP 13.9 mmol/L (8-16); BILIRUBIN - TOTAL 0.61 mg/dL (0.2-1.3); CALCIUM 8.4 mg/dL (8.5-10.1); CARBON DIOXIDE 27.8 mmol/L (21.0-32.0); CREATININE - SERUM 1.6 mg/dL (0.6-1.3); PROTEIN - SERUM 6.7 g/dL (6.4-8.2)
[2017-05-27 05:43] LABS: POTASSIUM - SERUM 4.7 mmol/L (3.5-5.1)
[2017-05-27 08:54] VITALS: BP 156/84
[2017-05-27 12:33] VITALS: BP 170/109
[2017-05-27] MEDS ORDERED: COZAAR50 MG PO (12:43)
[2017-05-27] MEDS ORDERED: ALDACTONE25 MG PO (12:43)
[2017-05-27] MEDS ORDERED: LASIX20 MG PO (12:44)
== END 2017-05-27 16:21 | disposition home health service (06) | DRG 291 ==
LOC: D.ER 14:45 → D.M2 17:54 → D.EDHOLD 17:54 → D.M2 18:59
PROVIDERS: Family Medicine; Physician Assistant
DX: I11.0 Hypertensive heart disease with heart failure (principal); J96.21 Acute and chronic respiratory failure with hypoxia; N17.9 Acute kidney failure, unspecified; I50.23 Acute on chronic systolic (congestive) heart failure; J44.9 Chronic obstructive pulmonary disease, unspecified; I25.10 Atherosclerotic heart disease of native coronary artery without angina pectoris; I25.5 Ischemic cardiomyopathy; I35.0 Nonrheumatic aortic (valve) stenosis; I48.2 Chronic atrial fibrillation; E78.5 Hyperlipidemia, unspecified; Z95.1 Presence of aortocoronary bypass graft

== ENCOUNTER → 2017-10-10 09:52 | Outpatient (CLI) | payer MEDICARE ==
[2017-05-24 14:36] VITALS: BMI 33.4
[~2017-10-10 09:52] MED LIST changes: +COZAAR50 MG PO; +LASIX20 MG PO
[2017-10-10 11:04] LABS: ANION GAP 17.4 mmol/L (8-16); CALCIUM 8.2 mg/dL (8.5-10.1); CARBON DIOXIDE 20.9 mmol/L (21.0-32.0); CREATININE - SERUM 3.4 mg/dL (0.6-1.3); POTASSIUM - SERUM 4.3 mmol/L (3.5-5.1)
[2017-10-10 11:09] LABS: BASOPHILS 1.1 % (0-2); EOSINOPHILS 9.7 % (0-7); HEMATOCRIT 42.6 % (42.0-54.0); HEMOGLOBIN 14.4 g/dL (13.5-17.5); IMMATURE GRANULOCYTES 0.6 % (0-5); LYMPHOCYTES 13.1 % (15-50); MCHC 33.8 g/dL (31.0-37.0); MCV 103.4 fL (80.0-100.0); MEAN PLATELET VOLUME 10.9 fL (7.4-10.4); MONOCYTES 18.2 % (2-11); NEUTROPHILS 57.3 % (40-80); PLATELET COUNT 177 10x3/uL (130-400); RBC 4.12 10x6/uL (4.20-6.10); RDW 13.6 % (11.5-14.5); WBC 6.5 10x3/uL (4.8-10.8)
[2017-10-12 12:49] LABS: CREATININE - URINE 54.2 mg/dL (30-125); PROTEIN - URINE 8.3 mg/dL (0.0-11.9)
== END | disposition home or self-care (01) ==
LOC: D.LAB 09:45 → D.US 10:00
PROVIDERS: Family Medicine
DX: N18.9 Chronic kidney disease, unspecified (principal)